=== PATIENT | female | born 1935 | race African-American/Black ===

== ENCOUNTER 2021-12-07 05:52 | Inpatient (IN) ==
[2021-12-07] MEDS ORDERED: SEVOFLURANE 1 UNIT/15 MINUTE INH ONE (07:08)
[2021-12-07] MEDS ORDERED: MIDAZOLAM 2 MG/2 ML VIAL ONE (07:08)
[2021-12-07] MEDS ORDERED: LIDOCAINE 2% 5 ML VIAL ONE ×2 (07:08→07:48)
[2021-12-07] MEDS ORDERED: propofoL 200 MG/20 ML VIAL IV ONE (07:08)
[2021-12-07] MEDS ORDERED: ROCURONIUM 50 MG/5 ML VIAL IV ONE (07:08)
[2021-12-07] MEDS ORDERED: fentaNYL 100 MCG/2 ML VIAL ONE (07:08)
[2021-12-07] MEDS ORDERED: ONDANSETRON 4 MG/2 ML VIAL ONE (07:08)
[2021-12-07] MEDS: LACTATED RINGERS 1,000 ML IV SCH ×2 (07:10→10:00)
[2021-12-07] MEDS ORDERED: FAMOTIDINE 20 MG TABLET PO ONE (07:17)
[2021-12-07] MEDS ORDERED: DIAZEPAM 5 MG TABLET PO ONE (07:17)
[2021-12-07] MEDS ORDERED: ACETAMINOPHEN 500 MG TABLET PO ONE (07:17)
[2021-12-07] MEDS ORDERED: GABAPENTIN 400 MG CAPSULE PO ONE (07:17)
[2021-12-07] MEDS ORDERED: VANCOMYCIN INJ 1,000 MG in SODIUM CHLORIDE 0.9% 250 ML IV ONE (07:30)
[2021-12-07] MEDS ORDERED: ROPIVACAINE 0.5% 30 ML VIAL ONE (07:48)
[2021-12-07] MEDS ORDERED: DEXAMETHASONE 4 MG/1 ML VIAL ONE (07:48)
[2021-12-07] MEDS ORDERED: diphenhydrAMINE CAP 25 MG CAPSULE PO PRN (08:45)
[2021-12-07] MEDS ORDERED: MORPHINE 2 MG/1 ML SYRINGE IV PRN (08:45)
[2021-12-07] MEDS ORDERED: BISACODYL 10 MG SUPP RECTAL PRN (08:45)
[2021-12-07] MEDS ORDERED: ONDANSETRON 4 MG/2 ML VIAL IV PRN ×2 (08:45→10:33)
[2021-12-07] MEDS ORDERED: MAGNESIUM HYDROXIDE SUSP 30 ML UDCUP PO PRN (08:45)
[2021-12-07] MEDS ORDERED: PROMETHAZINE 25 MG/1 ML VIAL IM PRN (08:45)
[2021-12-07] MEDS ORDERED: TEMAZEPAM 7.5 MG CAPSULE PO PRN (08:45)
[2021-12-07] MEDS ORDERED: LACTULOSE 20 GM/30 ML UDCUP PO PRN (08:45)
[2021-12-07] MEDS ORDERED: hydroCHLOROthiazide 12.5 MG CAPSULE PO PRN (08:48)
[2021-12-07] MEDS ORDERED: ePHEDrine 50 MG/ML VIAL ONE (08:55)
[2021-12-07] MEDS ORDERED: TRANEXAMIC ACID 1,000 MG/10 ML VIAL ONE (09:37)
[2021-12-07] MEDS ORDERED: GLYCOPYRROLATE 0.4 MG/2 ML VIAL ONE (09:46)
[2021-12-07] MEDS ORDERED: NEOSTIGMINE 10 MG/10 ML VIAL ONE (09:46)
[2021-12-07] MEDS ORDERED: LACTATED RINGERS 1,000 ML IV ONE (09:58)
[2021-12-07] MEDS ORDERED: HYDROmorphone 1 MG/1 ML SYRINGE IV PRN (10:33)
[2021-12-07] MEDS ORDERED: HYDROmorphone 1 MG/1 ML SYRINGE ONE (10:37)
[2021-12-07] MEDS: traMADol 50 MG TABLET PO SCH ×2 (13:30→21:04)
[2021-12-07] MEDS: PANTOPRAZOLE 40 MG TABLET PO SCH (13:30)
[2021-12-07] MEDS: ceFAZolin 2,000 MG/50 ML DUPLEX IV SCH ×2 (15:13→23:00)
[2021-12-07] MEDS: carvediloL 12.5 MG TABLET PO SCH (16:43)
[2021-12-07] MEDS: DOCUSATE SODIUM 100 MG CAPSULE PO SCH (21:04)
[2021-12-07] MEDS: APIXABAN 5 MG TABLET PO SCH (21:04)
[2021-12-07] MEDS: GABAPENTIN 100 MG CAPSULE PO SCH (21:04)
[2021-12-08 05:44] LABS: Basophils % 0.1 % (0.0-0.8); Eosinophils % 0.6 % (0.00-10.9); Hematocrit 24.7 VOL% (35.7-47.0); Immature Granulocytes % 0.3 %; Immature Granulocytes Absolute 0.02 #; Lymphocytes # 0.3 10*3/uL (1.4-4.0); Lymphocytes % 4.5 % (21.3-54.2); Mean Corpuscular HGB Conc 32.4 GM/DL (32-36); Mean Platelet Volume 11.7 FL (9.6-12.0); Monocytes # 0.4 10*3/uL (0.11-0.8); Monocytes % 5.8 % (1.7-12.7); Neutrophils % 88.7 % (38.7-73.9); Platelet Count 103 T/CUMM (130-400); Red Blood Count 2.52 MC/CUMM (3.8-5.5); Red Cell Distribution Width 14.8 % (9.3-17.3); White Blood Count 7.1 T/CUMM (4-12)
[2021-12-08 05:52] LABS: Band Neutrophils 1 % (0-10); Lymphocytes 4 % (20-55); Total Cells Counted 100
[2021-12-08 05:53] LABS: Macrocytosis Slight; Platelet Estimate Decreased
[2021-12-08 05:54] LABS: Calcium 8.1 MG/DL (8.5-10.1); Osmolality,Calculated 279.5 MOS/KG (273-304); Potassium 3.6 MMOL/L (3.5-5.1)
[2021-12-08] MEDS: LEVOTHYROXINE 50 MCG TABLET PO SCH (05:55)
[2021-12-08] MEDS ORDERED: ACETAMINOPHEN 325 MG TABLET PO PRN (08:47)
[2021-12-08] MEDS: DOCUSATE SODIUM 100 MG CAPSULE PO SCH ×2 (09:01→20:45)
[2021-12-08] MEDS: amLODIPine 2.5 MG TABLET PO SCH (09:01)
[2021-12-08] MEDS: FOLIC ACID 1 MG TABLET PO SCH (09:01)
[2021-12-08] MEDS: PANTOPRAZOLE 40 MG TABLET PO SCH (09:01)
[2021-12-08] MEDS: ROSUVASTATIN 10 MG TABLET PO SCH (09:01)
[2021-12-08] MEDS: carvediloL 12.5 MG TABLET PO SCH ×2 (09:01→16:07)
[2021-12-08] MEDS: lisinopriL 20 MG TABLET PO SCH (09:01)
[2021-12-08] MEDS: ASPIRIN EC 81 MG TABLET PO SCH (09:01)
[2021-12-08] MEDS: APIXABAN 5 MG TABLET PO SCH ×2 (09:01→20:44)
[2021-12-08] MEDS: LORATADINE 10 MG TABLET PO SCH (09:01)
[2021-12-08] MEDS: SERTRALINE 50 MG TABLET PO SCH (09:01)
[2021-12-08] MEDS: traMADol 50 MG TABLET PO SCH ×2 (09:02→20:44)
[2021-12-08] MEDS: GABAPENTIN 100 MG CAPSULE PO SCH (20:45)
[2021-12-09 04:32] LABS: Basophils % 0.4 % (0.0-0.8); Eosinophils # 0.1 10*3/uL (0.0-0.87); Eosinophils % 2.4 % (0.00-10.9); Hematocrit 22.5 VOL% (35.7-47.0); Hemoglobin 7.2 GM/DL (12.0-16.0); Immature Granulocytes % 1.3 %; Immature Granulocytes Absolute 0.07 #; Lymphocytes # 0.5 10*3/uL (1.4-4.0); Mean Corpuscular Volume 99.1 FL (87-102); Mean Platelet Volume 12.6 FL (9.6-12.0); Monocytes # 0.4 10*3/uL (0.11-0.8); Monocytes % 6.9 % (1.7-12.7); Platelet Count 89 T/CUMM (130-400); Red Blood Count 2.27 MC/CUMM (3.8-5.5); Red Cell Distribution Width 15.2 % (9.3-17.3); White Blood Count 5.4 T/CUMM (4-12)
[2021-12-09 05:04] LABS: Platelet Estimate Decreased
[2021-12-09] MEDS: LEVOTHYROXINE 50 MCG TABLET PO SCH (06:34)
[2021-12-09] MEDS ORDERED: SODIUM CHLORIDE 0.9% 1,000 ML IV PRN (07:17)
[2021-12-09] MEDS: FOLIC ACID 1 MG TABLET PO SCH (09:22)
[2021-12-09] MEDS: APIXABAN 5 MG TABLET PO SCH ×2 (09:22→20:39)
[2021-12-09] MEDS: carvediloL 12.5 MG TABLET PO SCH ×2 (09:22→16:56)
[2021-12-09] MEDS: SERTRALINE 50 MG TABLET PO SCH (09:22)
[2021-12-09] MEDS: LORATADINE 10 MG TABLET PO SCH (09:22)
[2021-12-09] MEDS: ASPIRIN EC 81 MG TABLET PO SCH (09:22)
[2021-12-09] MEDS: DOCUSATE SODIUM 100 MG CAPSULE PO SCH ×2 (09:22→20:39)
[2021-12-09] MEDS: ROSUVASTATIN 10 MG TABLET PO SCH (09:22)
[2021-12-09] MEDS: PANTOPRAZOLE 40 MG TABLET PO SCH (09:23)
[2021-12-09] MEDS: traMADol 50 MG TABLET PO SCH ×2 (09:23→20:39)
[2021-12-09] MEDS: amLODIPine 2.5 MG TABLET PO SCH (09:24)
[2021-12-09] MEDS: lisinopriL 20 MG TABLET PO SCH (09:26)
[2021-12-09] MEDS: GABAPENTIN 100 MG CAPSULE PO SCH (20:39)
[2021-12-10 04:44] LABS: Basophils % 0.2 % (0.0-0.8); Eosinophils # 0.2 10*3/uL (0.0-0.87); Eosinophils % 3.2 % (0.00-10.9); Hemoglobin 8.9 GM/DL (12.0-16.0); Immature Granulocytes % 0.4 %; Immature Granulocytes Absolute 0.02 #; Lymphocytes # 0.7 10*3/uL (1.4-4.0); Lymphocytes % 12.9 % (21.3-54.2); Mean Corpuscular Volume 94.7 FL (87-102); Mean Platelet Volume 12.4 FL (9.6-12.0); Monocytes # 0.3 10*3/uL (0.11-0.8); Monocytes % 5.8 % (1.7-12.7); Neutrophils % 77.5 % (38.7-73.9); Platelet Count 88 T/CUMM (130-400); Red Blood Count 2.85 MC/CUMM (3.8-5.5); Red Cell Distribution Width 16.2 % (9.3-17.3)
[2021-12-10 05:05] LABS: Platelet Estimate Decreased
[2021-12-10] MEDS: LEVOTHYROXINE 50 MCG TABLET PO SCH (05:55)
[2021-12-10] MEDS: DOCUSATE SODIUM 100 MG CAPSULE PO SCH (08:58)
[2021-12-10] MEDS: ROSUVASTATIN 10 MG TABLET PO SCH (08:58)
[2021-12-10] MEDS: APIXABAN 5 MG TABLET PO SCH (08:59)
[2021-12-10] MEDS: traMADol 50 MG TABLET PO SCH (08:59)
[2021-12-10] MEDS: FOLIC ACID 1 MG TABLET PO SCH (08:59)
[2021-12-10] MEDS: amLODIPine 2.5 MG TABLET PO SCH (08:59)
[2021-12-10] MEDS: lisinopriL 20 MG TABLET PO SCH (08:59)
[2021-12-10] MEDS: PANTOPRAZOLE 40 MG TABLET PO SCH (09:00)
[2021-12-10] MEDS: ASPIRIN EC 81 MG TABLET PO SCH (09:00)
[2021-12-10] MEDS: carvediloL 12.5 MG TABLET PO SCH (09:00)
[2021-12-10] MEDS: SERTRALINE 50 MG TABLET PO SCH (09:00)
[2021-12-10] MEDS: LORATADINE 10 MG TABLET PO SCH (09:00)
[2021-12-10 11:23] VITALS: BP 109/57
== END 2021-12-10 15:55 | disposition swing bed (61) | DRG 470 ==
LOC: N.SDSINP 05:52 → EDSTATUS 10:00 → N.3E 11:21
PROVIDERS: ADMIT Orthopaedic Surgery; ATTEND Orthopaedic Surgery